=== PATIENT | female | born 1960 | race Caucasian/White ===

== ENCOUNTER 2020-01-17 02:58 | Emergency (ER) | payer OTHER ==
[~2020-01-17] VITALS: Ht 167 cm; Wt 118.0 kg
[~2020-01-17 02:58] MED LIST: ALPR1T PO; CEFU250T PO; CLIN150C17 PO; DULO60CA6 PO; FURO40TA4 PO; IBP800T PO; K CL PO; LEVO125T6 PO; LVT.15T PO; PRD10T PO
[2020-01-17 03:12] VITALS: BP 145/63
[2020-01-17] MEDS ORDERED: TETANUS,DIPTH,PERTUSS P/F (BOOSTRIX) 0.5 ML VIAL IM ONE (03:15)
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
[2020-01-17] MEDS ORDERED: SULF1TAB35 PO (03:39)
[2020-01-17] MEDS ORDERED: TRIM/SULFAMETH 160/800 (SEPTRA DS) TAB PO ONE ×2 (03:42→03:45)
--- NOTE | 2020-01-17 06:41 | Diagnostic Imaging Report ---
INDICATION: Left leg trauma COMPARISON: None FINDINGS: Two views left tibia-fibula demonstrate no fracture or dislocation. Articular surfaces are normal. No foreign body seen. IMPRESSION: Negative left tibia and fibula Dictated by: Dictated on workstation # [id number]
== END 2020-01-17 03:52 | disposition home or self-care (01) ==
LOC: EDUNIT# 02:58 → ER 02:59
DX: S81.812A Laceration without foreign body, left lower leg, initial encounter (principal); J44.9 Chronic obstructive pulmonary disease, unspecified; I10 Essential (primary) hypertension; E03.9 Hypothyroidism, unspecified; E66.01 Morbid (severe) obesity due to excess calories; F41.9 Anxiety disorder, unspecified; F32.9 Major depressive disorder, single episode, unspecified; G89.29 Other chronic pain; M54.9 Dorsalgia, unspecified; Z79.890 Hormone replacement therapy; Z68.41 Body mass index [BMI] 40.0-44.9, adult; Z79.82 Long term (current) use of aspirin; Z23 Encounter for immunization; Z79.1 Long term (current) use of non-steroidal anti-inflammatories (NSAID); Z79.52 Long term (current) use of systemic steroids; Y00.XXXA Assault by blunt object, initial encounter
CPT/HCPCS: 73590; 90715

== ENCOUNTER 2022-09-24 00:48 | Observation (INO) | payer SELFPAY ==
[2022-09-24] VITALS (18 sets, daily range): BP systolic 123–155; BP diastolic 65–101
[~2022-09-24] VITALS: Ht 165.1 cm; Wt 106.8 kg
[~2022-09-24 00:48] MED LIST changes: +ASCO-262 PO; +BUPR150T24 PO; +BUPR300T98 PO; +CITA40TA13 PO; -CLIN150C17 PO; +CLIN150C20 PO; +DOXY100T2 PO; +FISH1CAP15 PO; +LEVO175T5 PO; +LEVO75TA6 PO; +MAGN400T39 PO; +MULT-1136 PO; +OXC5T PO; +SULF1TAB38 PO; +VITA-246 PO; +ZINC50TA11 PO
[2022-09-24] MEDS ORDERED: ASPIRIN 81 MG CHEW (CHILDREN'S ASA) PO ONE (01:00)
[2022-09-24] MEDS: NITROGLYCERIN 0.4 MG SL TABS BTL 25'S SL PRN ×3 (01:04→01:17)
[2022-09-24 01:07] LABS: BASOPHILS % (AUTO) 0 % (0-10); EOSINOPHILS # (AUTO) 0.2 10^3/uL (0.0-0.3); EOSINOPHILS % (AUTO) 3 % (0-10); HEMATOCRIT 42 % (35-52); HEMOGLOBIN 13.8 g/dL (11.5-16.0); LYMPHOCYTES # (AUTO) 3.3 10^3/uL (1.0-4.0); LYMPHOCYTES % (AUTO) 41 % (12-44); MEAN CORPUSCULAR HEMOGLOBIN 30 pg (25-34); MEAN CORPUSCULAR HGB CONC 33 g/dL (32-36); MEAN CORPUSCULAR VOLUME 93 fL (80-99); MEAN PLATELET VOLUME 9.7 fL (9.0-12.2); MONOCYTES # (AUTO) 0.5 10^3/uL (0.0-1.0); MONOCYTES % (AUTO) 6 % (0-12); NEUTROPHILS # (AUTO) 4.1 10^3/uL (1.8-7.8); NEUTROPHILS % (AUTO) 50 % (42-75); PLATELET COUNT 292 10^3/uL (130-400); WHITE BLOOD COUNT 8.3 10^3/uL (4.3-11.0)
--- NOTE | 2022-09-24 01:09 | ED Chest Pain ---
General Chief Complaint: Chest Pain Stated Complaint: CP Nursing Triage Note: TO ED VIA POV AND AMBULATORY TO ROOM 7 WITH C/O LEFT SIDE CP THAT WOKE HER UP FROM SLEEP JUST POLICE CLERK APPROX 20MIN AGO. RATES PAIN 7/10. PT IS AUDIBLY WHEEZY. Source: patient Exam Limitations: no limitations History of Present Illness Date Seen by Provider: Sep 24, 2022 Time Seen by Provider: 00:54 Initial Comments Here with report of 20 minutes of left-sided chest pain that woke her up from sleep. States that it is 7 out of 10 and she is a little short of breath and does have some wheezes. Denies smoking history. Denies previous cardiac history but states that she does have thyroid problems. Denies nausea or vo miting but does have weakness. Denies sweating. Timing/Duration: 1/2 hour, constant Severity/Quality: moderate, severe, pressure, sharp Location: central Radiation: no radiation Prior CP/Workup: no prior chest pain, echocardiography Modifying Factors: improves with other (No exacerbating or relieving factors) ASA po POLICE CLERK: No NTG SL POLICE CLERK: No Associated Symptoms: No abdominal pain, No back pain, No diaphoresis, No nausea/vomiting; shortness of breath; No weakness Allergies and Home Medications Allergies Coded Allergies: NKANo Known Allergies (Verified Allergy, Unknown, 10/31/06) Patient Home Medication List Home Medication List Reviewed: Yes Ascorbate Calcium (Vitamin C) 500 Mg Tablet, 500 MG PO DAILY, (Reported) Entered as Reported by: CARRIE AQUINO on 06/26/22 1123 Last Action: Reviewed Bupropion HCl (Wellbutrin Xl) 150 Mg Tab.er.24h, 150 MG PO DAILY, (Reported) Entered as Reported by: CARRIE AQUINO on 09/24/221457 Last Action: Reviewed Bupropion HCl (Wellbutrin Xl) 300 Mg Tab.er.24h, 300 MG PO DAILY, (Reported) Entered as Reported by: CARRIE AQUINO on 09/24/221457 Last Action: Reviewed Citalopram Hydrobromide (Citalopram HBr) 40 Mg Tablet, 40 MG PO DAILY, (Reported) Entered as Reported by: CARRIE AQUINO on 09/24/221457 Last Action: Reviewed Cyanocobalamin (Vitamin B-12) (Vitamin B-12) 500 Mcg Tablet, 500 MCG PO DAILY, (Reported) Entered as Reported by: CARRIE AQUINO on 09/24/221457 Last Action: Reviewed Ibuprofen (Ibuprofen) 200 Mg Capsule, 600 MG PO Q8H PRN for PAIN-MILD (1-4), (Reported) Entered as Reported by: CARRIE AQUINO on 09/24/221457 Last Action: Reviewed Levothyroxine Sodium (Levothyroxine Sodium) 175 Mcg Tablet, 175 MCG PO DAILY, (Reported) Entered as Reported by: CARRIE AQUINO on 09/24/221457 Last Action: Reviewed [place]-3S/Dha/Epa/Fish Oil (Fish Oil 1,200 mg Softgel) 350-600 Mg Capsule, 1 EACH PO DAILY, (Reported) Entered as Reported by: CARRIE AQUINO on 09/24/221457 Last Action: Reviewed Selenomethionine (Selenium) 200 Mcg Tablet, 200 MCG PO DAILY, (Reported) Entered as Reported by: CARRIE AQUINO on 09/24/221457 Last Action: Reviewed Vitamin A (Vitamin A) 2,400 Mcg Capsule, 2,400 MCG PO DAILY, (Reported) Entered as Reported by: CARRIE AQUINO on 09/24/221457 Last Action: Reviewed Vitamin D3/Vitamin K2 (Mk4) (K2 Plus D3 Tablet) 1,000 Unit-100 Mcg Tablet, 1 EACH PO DAILY, (Reported) Entered as Reported by: CARRIE AQUINO on 09/24/22 160 Last Action: Reviewed Vitamin E Mixed (Vitamin E) 100 Unit Tablet, 100 UNIT PO DAILY, (Reported) Entered as Reported by: CARRIE AQUINO on 09/24/221457 Last Action: Reviewed Zinc Gluconate (Zinc) 50 Mg Tablet, 50 MG PO DAILY, (Reported) Entered as Reported by: CARRIE AQUINO on 06/26/22 1123 Last Action: Reviewed [[place]] , 1 EA PO DAILY, (Reported) Entered as Reported by: CARRIE AQUINO on 09/24/221457 Last Action: Reviewed Discontinued Medications Bupropion HCl (Bupropion Xl) 150 Mg Tab.er.24h, 150 MG PO DAILY Discontinued Reason: Duplicate Order Prescribed by: CHAVA CASTRO on 06/27/22 1512 Last Action: Discontinued Bupropion HCl (Bupropion Xl) 300 Mg Tab.er.24h, 300 MG PO DAILY Discontinued Reason: Duplicate Order Prescribed by: CHAVA CASTRO on 06/27/221511 Last Action: Discontinued Citalopram Hydrobromide (Citalopram HBr) 40 Mg Tablet, 40 MG PO DAILY Discontinued Reason: Duplicate Order Prescribed by: CHAVA CASTRO on 06/27/221511 Last Action: Discontinued Doxycycline Hyclate (Doxycycline Hyclate) 100 Mg Tablet, 100 MG PO BID Discontinued Reason: Duplicate Order Prescribed by: CHAVA CASTRO on 06/27/221516 Last Action: Discontinued Fish Oil/Dha/Epa (Fish Oil 1,200 mg Fish Oil) 1,200 Mg-144 Mg-216 Mg Capsule, 1 EACH PO DAILY, (Reported) Discontinued Reason: Duplicate Order Entered as Reported by: CARRIE AQUINO on 06/26/221122 Last Action: Discontinued Levothyroxine Sodium (Levothyroxine Sodium) 175 Mcg Tablet, 175 MCG PO DAILY Discontinued Reason: Duplicate Order Prescribed by: CHAVA CASTRO on 06/27/221511 Last Action: Discontinued Magnesium Oxide (Magnesium) 400 Mg Magnesium Tablet, 400 MG PO DAILY, (Reported) Discontinued Reason: Duplicate Order Entered as Reported by: CARRIE AQUINO on 06/26/221122 Last Action: Discontinued Multivitamin (Multivitamin) 1 Each Tablet, 1 EACH PO DAILY, (Reported) Discontinued Reason: Duplicate Order Entered as Reported by: CARRIE AQUINO on 06/26/221122 Last Action: Discontinued Oxycodone Hcl (Oxyir Tablet) 5 Mg Tab, 5 MG PO Q4H PRN for PAIN-SEVERE (8-10) Discontinued Reason: Duplicate Order Prescribed by: CHAVA CASTRO on 06/27/22 1649 Last Action: Discontinued Vitamin D3/Vitamin K2 (Mk4) (K2 Plus D3 Tablet) 1,000 Unit-100 Mcg Tablet, 1 EACH PO DAILY, (Reported) Discontinued Reason: Duplicate Order Entered as Reported by: CARRIE AQUINO on 06/26/221122 Last Action: Discontinued Review of Systems Review of Systems Constitutional: see HPI; No chills, No fever EENTM: No Nose Congestion, No Throat Pain Respiratory: Denies Cough; Shortness of Air Cardiovascular: Chest Pain, Edema Gastrointestinal: Denies Nausea, Denies Vomiting Genitourinary: No Symptoms Reported Musculoskeletal: no symptoms reported Skin: change in color (Lower extremities bilateral); No lesions Psychiatric/Neurological: No Symptoms Reported Past Tegodtu-Hfpixv-Ynnqsm Hx Patient Social History Tobacco Use?: No Substance use?: No Alcohol Use?: No Immunizations Up To Date Tetanus Booster (TDap): Unknown Influenza Vaccine Up-to-Date: No; Not Current Seasonal Allergies Seasonal Allergies: Yes Past Medical History Surgery/Hospitalization HX: HX-ASTHMA, HX CELLULITIS, HTN, HYPOTHYROIDISM, DEPRESSION SURGICAL HX- HYST, T AND A, Surgeries: Yes Bladder Surgery, Hysterectomy, Tonsillectomy Respiratory: Yes Asthma, COPD Cardiac: Yes Hypertension Neurological: No 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 Genitourinary: No Gastrointestinal: No Musculoskeletal: No Arthritis, Chronic Back Pain Endocrine: Yes Hypothyroidsim HEENT: No Loss of Vision: Denies Hearing Impairment: Denies Cancer: No Psychosocial: Yes Anxiety Integumentary: No Blood Disorders: No Family Medical History Reviewed Nursing Family Hx Cardiovascular disease 19 MOTHER Colon cancer 19 FATHER Diabetes mellitus 19 FATHER Heart Disease, Cancer, Diabetes Physical Exam Vital Signs Vital Signs - First Documented 09/24/22 00:53 Temp 36.0 Pulse 74 Resp 20 B/P (MAP) 182/101 (128) Pulse Ox 96 O2 Delivery Room Air Capillary Refill : Less Than 3 Seconds Height, Weight, BMI Height: 5'5" Weight: 266lbs. oz. 120.517406op; BMI Method:Stated General Appearance: WD/WN, Mild Distress HEENT: PERRL/EOMI, Pharynx Normal Neck: Non Tender, Supple Respiratory: Wheezing (Trace wheezing throughout all lung hernández) Cardiovascular: Regular Rate, Rhythm, No Murmur Gastrointestinal: Non Tender, Soft Extremity: Normal Range of Motion, Non Tender, Pedal Edema (1-2+ up to mid tibia bilateral) Neurologic/Psychiatric: Alert Skin: Warm/Dry, Other (Red/purple discoloration to the lower extremities from mid tibia down) Progress/Results/Core Measures Results/Orders Lab Results Laboratory Tests Test 09/24/22 00:55 09/24/22 02:55 Range/Units White Blood Count 8.3 4.3-11.0 10^3/uL Red Blood Count 4.57 3.80-5.11 10^6/uL Hemoglobin 13.8 11.5-16.0 g/dL Hematocrit 42 35-52 % Mean Corpuscular Volume 93 80-99 fL Mean Corpuscular Hemoglobin 30 25-34 pg Mean Corpuscular Hemoglobin Concent 33 32-36 g/dL Red Cell Distribution Width 14.6 H 10.0-14.5 % Platelet Count 292 130-400 10^3/uL Mean Platelet Volume 9.7 9.0-12.2 fL Immature Granulocyte % (Auto) 1 % Neutrophils (%) (Auto) 50 42-75 % Lymphocytes (%) (Auto) 41 12-44 % Monocytes (%) (Auto) 6 0-12 % Eosinophils (%) (Auto) 3 0-10 % Basophils (%) (Auto) 0 0-10 % Neutrophils # (Auto) 4.1 1.8-7.8 10^3/uL Lymphocytes # (Auto) 3.3 1.0-4.0 10^3/uL Monocytes # (Auto) 0.5 0.0-1.0 10^3/uL Eosinophils # (Auto) 0.2 0.0-0.3 10^3/uL Basophils # (Auto) 0.0 0.0-0.1 10^3/uL Immature Granulocyte # (Auto) 0.1 0.0-0.1 10^3/uL Prothrombin Time 12.9 12.2-14.7 SEC INR Comment 0.9 0.8-1.4 Activated Partial Thromboplast Time 37 H 24-35 SEC D-Dimer 2.72 H 0.00-0.49 UG/ML Sodium Level 137 135-145 MMOL/L Potassium Level 4.4 3.6-5.0 MMOL/L Chloride Level 100 98-107 MMOL/L Carbon Dioxide Level 26 21-32 MMOL/L Anion Gap 11 5-14 MMOL/L Blood Urea Nitrogen 22 H 7-18 MG/DL Creatinine 0.95 0.60-1.30 MG/DL Estimat Glomerular Filtration Rate 67 BUN/Creatinine Ratio 23 Glucose Level 102 70-105 MG/DL Calcium Level 9.5 8.5-10.1 MG/DL Corrected Calcium 9.5 8.5-10.1 MG/DL Magnesium Level 2.0 1.6-2.4 MG/DL Total Bilirubin 0.2 0.1-1.0 MG/DL Aspartate Amino Transf (AST/SGOT) 18 5-34 U/L Alanine Aminotransferase (ALT/SGPT) 18 0-55 U/L Alkaline Phosphatase 112 40-136 U/L Myoglobin 92.7 H 10.0-92.0 NG/ML Troponin I < 0.028 < 0.028 <0.028 NG/ML C-Reactive Protein High Sensitivity 0.69 H 0.00-0.50 MG/DL B-Type Natriuretic Peptide 87.1 <100.0 PG/ML Total Protein 8.5 H 6.4-8.2 GM/DL Albumin 4.0 3.2-4.5 GM/DL My Orders Orders - DANAY GALO MD Cbc With Automated Diff (09/24/22 00:59) Magnesium (09/24/22 00:59) Chest 1 View, Ap/Pa Only (09/24/22 00:59) Ekg Tracing (09/24/22 00:59) Comprehensive Metabolic Panel (09/24/22 00:59) Myoglobin Serum (09/24/22 00:59) Protime With Inr (09/24/22 00:59) Partial Thromboplastin Time (09/24/22 00:59) O2 (09/24/22 00:59) Monitor-Rhythm Ecg Trace Only (09/24/22 00:59) Ed Iv/Invasive Line Start (09/24/22 00:59) Nitroglycerin 0.4 Mg Btl 25's (Nitrostat (09/24/22 01:00) Aspirin Chewable Tablet (Baby Aspirin Ch (09/24/22 01:00) Fibrin Degradation Products (09/24/22 00:59) Troponin I Wendy (09/24/22 00:59) Bnp Wendy (09/24/22 01:19) Hs C Reactive Protein (09/24/22 01:19) Morphine Injection (Morphine Injection (09/24/22 01:30) Ct Angio Chest W (R/O Pe) (09/24/22 01:50) Ns Iv 1000 Ml (Sodium Chloride 0.9%) (09/24/22 01:50) Iohexol Injection (Omnipaque 350 Mg/Ml 1 (09/24/22 02:30) Received Contrast (Hold Metformin- Contr (09/24/22 02:30) Ns (Ivpb) (Sodium Chloride 0.9% Ivpb Bag (09/24/22 02:30) Troponin I Wendy (09/24/22 02:35) Medications Given in ED Vital Signs/I&O 09/24/22 00:53 Temp 36.0 Pulse 74 Resp 20 B/P (MAP) 182/101 (128) Pulse Ox 96 O2 Delivery Room Air Blood Pressure Mean: 128 Progress Progress Note : Progress Note Seen and evaluated. IV, labs including CBC, CMP, troponin, magnesium, coags and D-dimer ordered. I will add BNP as well. Chest x-ray and EKG ordered. ASA 324 mg p.o. as well as nitro sublingual 0.4 mg up to 3 doses ordered. Monitor patient. Differential diagnosis includes cardiac event, pulmonary embolism, COPD/asthma exacerbation, electrolyte abnormality, reflux. 0114: Patient has had 1 nitroglycerin with improvement of pain to 4 out of 10 now. We have given second nitroglycerin and blood pressure is currently 120 systolic down from 160 systolic. Monitor patient. 0118: Chest x-ray interpreted by me as noted below. Pain is down to a 3 out of 10 now after 2 nitro and blood pressure is 118 systolic. We will proceed with third nitroglycerin sublingual. CBC is grossly normal. Chemistries pending. Monitor patient. 0150: Pain is much improved after morphine 4 mg IV. Chemistries reviewed and grossly normal with normal serum creatinine and normal LFTs. Troponin is negative. Myoglobin is elevated slightly. BNP is negative. CRP is low at 0.69. She does have elevated D-dimer concerning for clot and possible pulmonary embolism. CT angiogram of the chest ordered. We will give 1 L of normal saline slowly after CT angio due to contrast concerns but she does have cardiomegaly noted on chest x-ray with pleural effusion and so we will be slower than full bolus and will likely run out of 500 mL an hour. 0235: I did review the CT angiogram and I do not see pulmonary embolism but she does have left pleural effusion and cardiomegaly on my interpretation pending radiology read. 0329: Patient remains comfortable with heart rate in the 50s and blood pressure in the 140s systolic. Repeat troponin is negative. CT angiogram report listed below shows no pulmonary embolism. D-dimer elevation may be from chronic stasis in the legs and not pulmonary embolism or significant clot. No signs of infection on laboratory evaluation. Patient should be admitted as she is higher risk for cardiovascular disease with hypertension and elevated cholesterol and age. She will need cardiology consult. I did discuss with the patient who agrees. I did discuss the case with Dr. Estrada, hospitalist on-call for [facility] and she accepts patient for admission, observation status. We will consult cardiology in the morning and get 2D cardiac echo in the morning with repeat troponin at 7 AM. Again all findings and concerns were discussed with patient and family who agree with admission. She is currently chest pain-free. Initial ECG Impression Date: Sep 24, 2022 Initial ECG Impression Time: 00:54 Initial ECG Rate: 69 Initial ECG Rhythm: Normal Sinus Comment Sinus rhythm with left bundle branch block and left atrial abnormality with OK interval increased to 225. No evidence of ST elevation LA. Overall similar morphology to previous of 19 May 2015. Interpreted by me. Diagnostic Imaging Diagonstic Imaging: Xray Plain Films/CT/US/NM/MRI: chest Comments Chest x-ray shows enlarged cardiac silhouette with likely left pleural effusion that is changed from previous. Interpreted by me pending radiology review. Reviewed: Reviewed by Me Diagonstic Imaging: CT Plain Films/CT/US/NM/MRI: chest Comments CT angiogram of the chest shows no pulmonary embolism. No aortic aneurysm or dissection. Left pleural effusion with associated compressive atelectasis. Minimal left basilar atelectasis. Cardiomegaly. Per stat rad report. Reviewed: Reviewed [facility] Study, Reviewed by Me Departure Communication (Admissions) Time/Spoke to Admitting Phy: 03:29 Impression Primary Impression: Chest pain Qualified Codes: R07.9 - Chest pain, unspecified Additional Impressions: Pleural effusion, left Cardiomegaly Disposition: ADMITTED INPATIENT Condition: Stable Admissions Decision to Admit Reason: Admit from ER (General) Decision to Admit/Date: Sep 24, 2022 Time/Decision to Admit Time: 03:29 Departure-Patient Inst. Referrals: [facility] (PCP/Family) Primary Care Physician DANAY GALO MD Sep 24, 2022 01:09
[2022-09-24 01:19] LABS: CHLORIDE 100 MMOL/L (98-107); POTASSIUM 4.4 MMOL/L (3.6-5.0); SODIUM 137 MMOL/L (135-145)
[2022-09-24 01:20] LABS: CALCIUM 9.5 MG/DL (8.5-10.1)
[2022-09-24 01:21] LABS: GLUCOSE 102 MG/DL (70-105); TOTAL PROTEIN 8.5 GM/DL (6.4-8.2)
[2022-09-24 01:22] LABS: CARBON DIOXIDE 26 MMOL/L (21-32); FIBRIN DEGRADATION PRODUCTS 2.72 UG/ML (0.00-0.49); INR 0.9 (0.8-1.4); PROTHROMBIN TIME PATIENT 12.9 SEC (12.2-14.7)
[2022-09-24 01:23] LABS: BILIRUBIN,TOTAL 0.2 MG/DL (0.1-1.0)
[2022-09-24 01:25] LABS: ALKALINE PHOSPHATASE 112 U/L (40-136); CREATININE SERUM 0.95 MG/DL (0.60-1.30); GFR ESTIMATED 67
[2022-09-24 01:26] LABS: BUN/CREATININE RATIO 23
[2022-09-24 01:28] LABS: ALANINE AMINOTRANSFERASE 18 U/L (0-55)
[2022-09-24] MEDS ORDERED: morphine INJ 10 MG/ML 1ML (SYR OR VIAL) IVP ONE (01:30)
[2022-09-24] MEDS ORDERED: NS IV 1000 ML 1,000 ML IV STA (01:50)
[2022-09-24] MEDS ORDERED: HOLD METFORMIN - RECEIVED CONTRAST 20 ML VIAL IV SCH (02:30)
[2022-09-24] MEDS ORDERED: NS 100 ML (IVPB) BAG IV ONE (02:30)
[2022-09-24] MEDS ORDERED: IOHEXOL 350 MG/ML 100 ML (OMNIPAQUE 350) VIAL IV ONE (02:30)
[2022-09-24] MEDS ORDERED: ONDANSETRON 4 MG/2 ML (SDV) Z0FRAN IV PRN ×2 (04:30→05:30)
[2022-09-24] MEDS ORDERED: CATHETER FLUSH 10 ML SYR IVP PRN (04:30)
[2022-09-24] MEDS ORDERED: NITROGLYCERIN 0.4 MG SL TABS BTL 25'S SL PRN ×2 (04:30→07:30)
[2022-09-24] MEDS ORDERED: morphine INJ 4 MG/ML 1 ML (VIAL/SYRINGE) IV PRN ×2 (04:30→07:30)
[2022-09-24] MEDS ORDERED: ANTACID SUSP 30 ML UDC (MYLANTA) PO PRN (05:30)
[2022-09-24] MEDS ORDERED: MELATONIN 3 MG TABLET PO PRN (05:30)
[2022-09-24] MEDS ORDERED: LACTULOSE SYRUP 10GM/15ML (ENULOSE) 30ML UDC PO PRN (05:30)
[2022-09-24] MEDS ORDERED: ONDANSETRON 4 MG (ZOFRAN) ORAL DISSOLVE TAB PO PRN (05:30)
[2022-09-24] MEDS ORDERED: MILK OF MAGNESIA 400 MG/5 ML 30 ML UDC PO PRN (05:30)
[2022-09-24] MEDS ORDERED: CALCIUM CARBONATE 500 MG (TUMS) TAB.CHEW PO PRN (05:30)
[2022-09-24] MEDS ORDERED: BISACODYL 10 MG SUPP (DULCOLAX) PR PRN (05:30)
[2022-09-24] MEDS ORDERED: diphenhydrAMINE 50 MG/ML INJ (BENADRYL) IVP PRN (05:30)
[2022-09-24] MEDS ORDERED: ACETAMINOPHEN 325 MG TABLET PO PRN (05:30)
[2022-09-24] MEDS ORDERED: diphenhydrAMINE 25 MG TAB (BENADRYL) PO PRN (05:30)
[2022-09-24] MEDS ORDERED: polyethylene glycoL POWDER 17 GM (MIRALAX) PACK PO PRN (05:30)
[2022-09-24] MEDS: CATHETER FLUSH 10 ML SYR IVP SCH ×2 (06:10→16:30)
--- NOTE | 2022-09-24 06:13 | Diagnostic Imaging Report ---
INDICATION: Chest pain Single AP view of the chest is obtained with comparison made to the study of 05/19/2015. There is opacification of left lung base which may be due to infiltrate and possible associated pleural fluid. No pneumothorax is identified. Heart size is at the upper limits of normal without significant venous congestion. IMPRESSION: Left basilar infiltrate with associated left pleural fluid and/or thickening. Follow-up PA and lateral views of the chest would be useful. Dictated by: Dictated on workstation # [id number]
[2022-09-24] MEDS ORDERED: RT-ALBUTEROL SULF 2.5 MG/3 ML PRE-MIX VIAL IH PRN (06:30)
--- NOTE | 2022-09-24 06:50 | Diagnostic Imaging Report ---
INDICATION: Chest pain and elevated D-dimer. CTA of the thorax is performed after bolus intravenous administration of iodinated contrast. 3-D reformatted images are produced. There is mild cardiomegaly. Small amount of pericardial fluid is identified. There is moderate amount of left pleural fluid with subjacent atelectasis and/or pneumonitis most pronounced in the lingula and left lower lobe. There is no evidence of filling defect within the pulmonary arteries. There is mild aortic atherosclerotic calcification. Probable granulomas calcification is also noted in the lingula. There is mosaic pattern groundglass density which could be due to edema or pneumonitis. No definite lobar consolidation is identified. IMPRESSION: Left pleural fluid with atelectasis and/or pneumonitis and mild diffuse background pulmonary edema or pneumonitis. There is also evidence of granulomatous residua however no acute pulmonary embolism is detected. Dictated by: Dictated on workstation # [id number]
[2022-09-24 06:56] LABS: BASOPHILS % (AUTO) 0 % (0-10); EOSINOPHILS # (AUTO) 0.1 10^3/uL (0.0-0.3); EOSINOPHILS % (AUTO) 1 % (0-10); HEMATOCRIT 37 % (35-52); HEMOGLOBIN 12.3 g/dL (11.5-16.0); LYMPHOCYTES # (AUTO) 1.9 10^3/uL (1.0-4.0); LYMPHOCYTES % (AUTO) 21 % (12-44); MEAN CORPUSCULAR HEMOGLOBIN 31 pg (25-34); MEAN CORPUSCULAR HGB CONC 33 g/dL (32-36); MEAN CORPUSCULAR VOLUME 93 fL (80-99); MEAN PLATELET VOLUME 9.9 fL (9.0-12.2); MONOCYTES # (AUTO) 0.5 10^3/uL (0.0-1.0); MONOCYTES % (AUTO) 6 % (0-12); NEUTROPHILS # (AUTO) 6.7 10^3/uL (1.8-7.8); NEUTROPHILS % (AUTO) 72 % (42-75); PLATELET COUNT 227 10^3/uL (130-400); WHITE BLOOD COUNT 9.2 10^3/uL (4.3-11.0)
[2022-09-24 07:12] LABS: BUN/CREATININE RATIO 25; CALCIUM 8.4 MG/DL (8.5-10.1); CARBON DIOXIDE 25 MMOL/L (21-32); CHLORIDE 102 MMOL/L (98-107); CREATININE SERUM 0.83 MG/DL (0.60-1.30); GFR ESTIMATED 79; GLUCOSE 105 MG/DL (70-105); POTASSIUM 4.9 MMOL/L (3.6-5.0); SODIUM 135 MMOL/L (135-145)
--- NOTE | 2022-09-24 08:43 | Consultation-Cardiology ---
HPI-Cardiology Cardiology Consultation Date of Consultation 09/24/22 Date of Admission Time Seen by Provider: 08:39 Indication: Chest pain HPI 62-year-old lady with no significant cardiac history, reporting history of bradycardia in the past. Woke up at night with chest pain in the retrosternal area. Mild shortness of breath. Continue to have chest pain until she arrived to the emergency room. Currently she is feeling better, no active chest pain. No shortness of breath. No palpitation. Home Medications & Allergies Allergies: Coded Allergies: NKANo Known Allergies (Verified Allergy, Unknown, 10/31/06) Home Medication List Reviewed: Yes BJW-Snhlab-Etqbrh Hx Patient Social History Marital Status: Employed/Student: employed Former smoker/When Quit: Jul 22, 1990 2nd Hand Smoke Exposure: No Recent Hopitalizations: Yes Alcohol Use?: No Immunizations Up To Date Tetanus Booster (TDap): Unknown Past Medical History Discussed below Family Medical History Significant Family History: Heart Disease, Cancer, Diabetes Family History: Cardiovascular disease 19 MOTHER Colon cancer 19 FATHER Diabetes mellitus 19 FATHER Review of Systems-General Review of Systems Constitutional: see HPI; No chills, No fever EENTM: see HPI, no symptoms reported Respiratory: no symptoms reported, see HPI Cardiovascular: see HPI, chest pain; No edema, No Hx of Intervention, No palpitations, No syncope, No vascular heart diseas, No other Gastrointestinal: no symptoms reported, see HPI Genitourinary: no symptoms reported, see HPI Musculoskeletal: no symptoms reported Skin: change in color (Lower extremities bilateral); No lesions Psychiatric/Neurological: No Symptoms Reported Reviewed Test Results Reviewed Test Results Lab Laboratory Tests Test 09/24/22 00:55 09/24/22 02:55 09/24/22 06:42 Range/Units White Blood Count 8.3 9.2 4.3-11.0 10^3/uL Red Blood Count 4.57 4.03 3.80-5.11 10^6/uL Hemoglobin 13.8 12.3 11.5-16.0 g/dL Hematocrit 42 37 35-52 % Mean Corpuscular Volume 93 93 80-99 fL Mean Corpuscular Hemoglobin 30 31 25-34 pg Mean Corpuscular Hemoglobin Concent 33 33 32-36 g/dL Red Cell Distribution Width 14.6 H 14.6 H 10.0-14.5 % Platelet Count 292 227 130-400 10^3/uL Mean Platelet Volume 9.7 9.9 9.0-12.2 fL Immature Granulocyte % (Auto) 1 0 % Neutrophils (%) (Auto) 50 72 42-75 % Lymphocytes (%) (Auto) 41 21 12-44 % Monocytes (%) (Auto) 6 6 0-12 % Eosinophils (%) (Auto) 3 1 0-10 % Basophils (%) (Auto) 0 0 0-10 % Neutrophils # (Auto) 4.1 6.7 1.8-7.8 10^3/uL Lymphocytes # (Auto) 3.3 1.9 1.0-4.0 10^3/uL Monocytes # (Auto) 0.5 0.5 0.0-1.0 10^3/uL Eosinophils # (Auto) 0.2 0.1 0.0-0.3 10^3/uL Basophils # (Auto) 0.0 0.0 0.0-0.1 10^3/uL Immature Granulocyte # (Auto) 0.1 0.0 0.0-0.1 10^3/uL Prothrombin Time 12.9 12.2-14.7 SEC INR Comment 0.9 0.8-1.4 Activated Partial Thromboplast Time 37 H 24-35 SEC D-Dimer 2.72 H 0.00-0.49 UG/ML Sodium Level 137 135 135-145 MMOL/L Potassium Level 4.4 4.9 3.6-5.0 MMOL/L Chloride Level 100 102 98-107 MMOL/L Carbon Dioxide Level 26 25 21-32 MMOL/L Anion Gap 11 8 5-14 MMOL/L Blood Urea Nitrogen 22 H 21 H 7-18 MG/DL Creatinine 0.95 0.83 0.60-1.30 MG/DL Estimat Glomerular Filtration Rate 67 79 BUN/Creatinine Ratio 23 25 Glucose Level 102 105 70-105 MG/DL Calcium Level 9.5 8.4 L 8.5-10.1 MG/DL Corrected Calcium 9.5 8.5-10.1 MG/DL Magnesium Level 2.0 1.6-2.4 MG/DL Total Bilirubin 0.2 0.1-1.0 MG/DL Aspartate Amino Transf (AST/SGOT) 18 5-34 U/L Alanine Aminotransferase (ALT/SGPT) 18 0-55 U/L Alkaline Phosphatase 112 40-136 U/L Myoglobin 92.7 H 10.0-92.0 NG/ML Troponin I < 0.028 < 0.028 < 0.028 <0.028 NG/ML C-Reactive Protein High Sensitivity 0.69 H 0.00-0.50 MG/DL B-Type Natriuretic Peptide 87.1 <100.0 PG/ML Total Protein 8.5 H 6.4-8.2 GM/DL Albumin 4.0 3.2-4.5 GM/DL Physical Exam Physical Exam Vital Signs Vital Signs - First Documented 09/24/22 09/24/22 00:53 05:53 Temp 36.0 Pulse 74 Resp 20 B/P (MAP) 182/101 (128) Pulse Ox 96 O2 Delivery Room Air FiO2 21 Capillary Refill : Less Than 3 Seconds Height, Weight, BMI Height: 5'5" Weight: 266lbs. oz. 120.783110qt; 39.18 BMI Method:Stated General Appearance: WD/WN, Mild Distress Eyes: Bilateral Eye Normal Inspection, Bilateral Eye PERRL, Bilateral Eye EOMI HEENT: PERRL/EOMI, Pharynx Normal Neck: Non Tender, Supple Respiratory: Wheezing (Trace wheezing throughout all lung hernández) Cardiovascular: Regular Rate, Rhythm, No Murmur Gastrointestinal: Non Tender, Soft Back: Normal Inspection, No CVA Tenderness, No Vertebral Tenderness Extremity: Normal Range of Motion, Non Tender, Pedal Edema (1-2+ up to mid tibia bilateral) Neurologic/Psychiatric: Alert Skin: Warm/Dry, Other (Red/purple discoloration to the lower extremities from mid tibia down) Lymphatic: No Adenopathy A/P-Cardiology Admission Diagnosis Chest pain Left bundle branch block Obesity Family history of atherosclerosis Assessment/Plan Chest pain nonspecific etiology, atypical in presentation Baseline EKG with left bundle branch block Cardiac enzymes were negative Planning to evaluate Lexiscan stress test Mildly elevated D-dimer, CT scan did not show any pulmonary infiltrate Left lower lobe infiltrate and pleural effusion noted on x-ray and CT Mild dyspnea with chest pain, feeling better Obesity, BMI 39 Strong family history of heart disease Clinical Quality Measures AMI/AHF: ASA po Prior to arrival: FENG Tirado MD Sep 24, 2022 08:43
[2022-09-24] MEDS ORDERED: RT-ALBUTEROL HFA 8.5 GM INHALER IH PRN (08:45)
[2022-09-24] MEDS ORDERED: REGADENOSON 0.4 MG/5 ML SYR (LEXISCAN) IV ONE ×2 (08:45→09:40)
[2022-09-24] MEDS ORDERED: SENNOSIDES 8.6 MG (SENOKOT) TAB PO SCH (09:00)
[2022-09-24] MEDS ORDERED: ASPIRIN E.C. 81 MG (ECOTRIN) TAB PO SCH ×2 (09:00)
[2022-09-24] MEDS ORDERED: ENOXAPARIN 120 MG/0.8 ML (LOVENOX) SQ SCH (09:00)
[2022-09-24] MEDS ORDERED: DOCUSATE SODIUM 100 MG (COLACE) CAP PO SCH (09:00)
[2022-09-24] MEDS ORDERED: RT-ALBUTEROL SULF 2.5 MG/3 ML PRE-MIX VIAL IH SCH (09:00)
[2022-09-24] MEDS: RT-ALBUTEROL HFA 8.5 GM INHALER IH SCH ×3 (10:45→19:17)
--- NOTE | 2022-09-24 11:32 | Cardiology Stress Test Report ---
Stress Test Report Date of Procedure/Referring: Date of Procedure: Sep 24, 2022 [facility] Admitting Physician Admitting Physician: Meera Estrada DO Attending Physician: Meera Estrada DO Indications: CP Baseline Heart Rate: 63 Baseline Blood Pressure: Blood Pressure Systolic: 136 Blood Pressure Diastolic: 78 Baseline Vitals Vital Signs Date Time Temp Pulse Resp B/P (MAP) Pulse Ox O2 Delivery O2 Flow Rate FiO2 09/24/22 00:53 36.0 74 20 182/101 (128) 96 Room Air 09/24/22 05:53 21 Baseline EKG: Baseline EKG: LBBB Summary After explaining the procedure to the patient, she signed a consent and then brought to the stress nuclear laboratory. Patient received 0.4 mg Lexiscan for stress test, ECG, heart rate and blood pressure were monitored continuously. Resting and stress dose of radio tracer were injected, imaging was acquired and reviewed in short axis, horizontal long axis and vertical long axis views. TID: 0.96 SSS: 8 SDS: 6 EF: 42 Patient tolerated Lexiscan well Baseline left bundle branch block persisted during test Reversible ischemia involving the inferior wall Prominent left ventricle with diffuse left ventricular hypokinesia ejection fraction 42% Copy Copies To 1: [facility]/ FENG ARROYO MD Sep 24, 2022 11:32
--- NOTE | 2022-09-24 11:44 | Diagnostic Imaging Report ---
Patient History: Followup pleural effusion.. Technique: Single decubitus view of the chest was obtained. Comparison: CT chest performed the same date. FINDINGS: Small layering left-sided pleural effusion is seen. Patchy opacities are seen in the left lung base. IMPRESSION: 1. Small layering left-sided pleural effusion. Dictated by: Dictated on workstation # [id number]
--- NOTE | 2022-09-24 12:03 | Diagnostic Imaging Report ---
PROCEDURE: US left lower extremity venous. TECHNIQUE: Multiple real-time grayscale images were obtained over the left lower extremity in various projections. Additional duplex Doppler and color Doppler images were also obtained. INDICATION: Left lower extremity edema. COMPARISON: Non available. FINDINGS: The left common femoral, femoral and popliteal veins are patent by color doppler imaging and without DVT. Visualized proximal aspects of the greater saphenous, deep femoral, posterior tibial and peroneal veins are also patent. All of the evaluated deep venous structures demonstrate normal compressibility and waveform augmentation where applicable. IMPRESSION: No left lower extremity deep venous thrombosis (DVT). Dictated by: Dictated on workstation # [id number]
--- NOTE | 2022-09-24 12:03 | History & Physical-Hospitalist ---
ANETA WHITFIELD 09/24/22 1203: History of Present Illness HPI/Chief Complaint This is a 62 y/o female who presented to the ED early this AM for chest pain. She reports that she went to bed and had vague pain under her left armpit and left lateral side of her chest. She tried taking advil which did not help. She ended up going to bed hoping it would pass but woke up around midnight with more severe pain in the center of her chest accompanied by shortness of breath. She said at that time it was a 7/10 and it felt constant and somewhat crampy. She said it worsened when she sat upright and when she took a breath. It decreased in intensity when she let her breath out. She proceeded to the ED and was worked up for ACS and PE which were found to be negative. She was given three doses of nitroglycerin in the ED which she says helped the pain. Her EKGs were found to have significant LBBB but this was unchanged from previous EKGs. ED nursing reports she had audible wheezing when she presented to the ED and ER physician reported she had trace wheezing throughout all lung hernández. This morning on exam she reports no pain or SOB when she woke up around 8 am in the ICU. Her history is significant for COPD/asthma treated with PRN albuterol which she says she only uses in the summer and a remote smoking history of 1ppd, quit in 1991. She was told she has COPD by her clinic doctors but is unsure of what kind. She denies being told she has ever had asthma but has significant allergies. She currently has drainage but denies cough, dyspnea, production of mucous, fevers, chills, N/VD. She was recently hospitalized for a LLE wound/cellulitis. This wound is healed but still somewhat visible today. She says in the previous 1-2 days she noted that her left leg was "twice as large" as her right with swelling and some discomfort though today this is not present except for warmth to touch in her lower left leg. Source: patient, RN/MD, RN notes reviewed Exam Limitations: no limitations Date Seen 09/24/22 Time Seen by a Provider: 10:45 Attending Physician [place] PCP Admitting Physician: Meera Faustin DO Attending Physician: Meera Faustin DO Referring Physician Date of Admission Sep 24, 2022 at 03:36 Home Medications & Allergies Home Medications Reviewed patient Home Medication Reconciliation performed by pharmacy medication reconciliations turfgrass technician and/or nursing. Patients Allergies have been reviewed. Allergies Allergies Coded Allergies NKANo Known Allergies (Verified Allergy, Unknown, 10/31/06) Past Rqkvhqk-Nxhocu-Boyozf Hx Patient Social History Marrital Status: Employed/Student: employed Tobacco Use?: No Smoking Status: Former Smoker Smokeless Tobacco Frequency: Former User (1 ppd, stopped in 1991.) Substance use?: No Alcohol Use?: No Pt feels they are or have been: No Immunizations Up To Date Tetanus Booster (TDap): Unknown Seasonal Allergies Seasonal Allergies: Yes Current Status Communicates: Verbally Primary Language: Italian Preferred Spoken Language: Italian Is interpretation needed?: No Past Medical History Surgeries: Bladder Surgery, Hysterectomy, Tonsillectomy Asthma, COPD Currently Using CPAP: No Currently Using BIPAP: No 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: Menopausal Arthritis, Chronic Back Pain Hypothyroidsim Loss of Vision: Denies Hearing Impairment: Denies Anxiety Blood Disorders: No PMHx: Depression Anxiety Hypothyroidism SurgHx: Tonsillectomy x 1 Hysterectomy for menorrhagia Hemorrhoidectomy with colonoscopy Family Medical History Reviewed Nursing Family Hx Cardiovascular disease 19 MOTHER Colon cancer 19 FATHER Diabetes mellitus 19 FATHER Heart Disease, Cancer, Diabetes Review of Systems Constitutional: see HPI; No chills, No diaphoresis, No dizziness, No fever, No malaise EENTM: nose congestion Respiratory: see HPI; No hemoptysis, No phlegm; short of breath, wheezing Cardiovascular: see HPI Gastrointestinal: no symptoms reported; No abdominal pain, No constipation, No diarrhea, No nausea, No vomiting Genitourinary: no symptoms reported : No Musculoskeletal: no symptoms reported Skin: see HPI, other (Left leg swelling/redness.) Psychiatric/Neurological: No Symptoms Reported Physical Exam Physical Exam Vital Signs Vital Signs - First Documented 09/24/22 09/24/22 00:53 05:53 Temp 36.0 Pulse 74 Resp 20 B/P (MAP) 182/101 (128) Pulse Ox 96 O2 Delivery Room Air FiO2 21 Capillary Refill : Less Than 3 Seconds Height, Weight, BMI Height: 5'5" Weight: 266lbs. oz. 120.705527nm; 39.18 BMI Method:Stated General Appearance: No Apparent Distress, Obese HEENT: PERRL/EOMI, Moist Mucous Membranes Neck: Full Range of Motion, Non Tender, Supple Respiratory: Lungs Clear, Normal Breath Sounds, Decreased Breath Sounds (Decrea sed in the left lower lobe.) Cardiovascular: Regular Rate, Rhythm, No Murmur Gastrointestinal: Non Tender, Soft Back: Normal Inspection Extremity: Pedal Edema (Trace), Other (LLE midshin to foot is erythematous, warm to touch. Extremities at this time are equal in size. ) Neurologic/Psychiatric: Alert, Oriented x3, Normal Mood/Affect Skin: Normal Color, Warm/Dry Results Results/Procedures Labs Laboratory Tests 09/24/22 00:55 09/24/22 06:42 Patient resulted labs reviewed. Imaging: Reviewed Imaging Films Imaging NAME: [facility] REC#: [id number] PT STATUS: ADM Collin : 1960 PHYSICIAN: MEERA FAUSTIN DO ADMIT DATE: 09/24/22/ICU Signed Date of Exam:09/24/22 CHEST, DECUBITUS 1 VIEW Patient History: Followup pleural effusion.. Technique: Single decubitus view of the chest was obtained. Comparison: CT chest performed the same date. FINDINGS: Small layering left-sided pleural effusion is seen. Patchy opacities are seen in the left lung base. IMPRESSION: 1. Small layering left-sided pleural effusion. Dictated by: Dictated on workstation # [id number] Dict: 09/24/22 1137 Trans: 09/24/22 1145 CVB [id number] Interpreted by: ZARI HAMMER DO Electronically signed by: ZARI HAMMER DO 09/24/22 1145 NAME: [facility] REC#: [id number] PT STATUS: ADM Collin : 1960 PHYSICIAN: DANAY GALO MD ADMIT DATE: 09/24/22/ICU Signed Date of Exam:09/24/22 CT ANGIO CHEST W (R/O PE) INDICATION: Chest pain and elevated D-dimer. CTA of the thorax is performed after bolus intravenous administration of iodinated contrast. 3-D reformatted images are produced. There is mild cardiomegaly. Small amount of pericardial fluid is identified. There is moderate amount of left pleural fluid with subjacent atelectasis and/or pneumonitis most pronounced in the lingula and left lower lobe. There is no evidence of filling defect within the pulmonary arteries. There is mild aortic atherosclerotic calcification. Probable granulomas calcification is also noted in the lingula. There is mosaic pattern groundglass density which could be due to edema or pneumonitis. No definite lobar consolidation is identified. IMPRESSION: Left pleural fluid with atelectasis and/or pneumonitis and mild diffuse background pulmonary edema or pneumonitis. There is also evidence of granulomatous residua however no acute pulmonary embolism is detected. Dictated by: Dictated on workstation # [id number] Dict: 09/24/2233 Trans: 09/24/2244 CVB [id number] Interpreted by: QAMAR BAY MD Electronically signed by: QAMAR BAY MD 09/24/2244 Assessment/Plan Assessment and Plan Assessment: This is a 62 y/o female who presented with atypical chest pain and SOB on HD#0. Chest Pain Pleural Effusion LBBB Lung consolidation COPD/Asthma LLE Edema/Erythema Chest Pain LBBB Stable vs unstable angina vs pleural effusion/consolidation vs carditis vs COPD exacerbation vs pleurisy -Troponins x3 negative -BNP WNL -Elevated D-dimer, CTA negative for PE or aneurysm -Echo EF 40-45%, Pulm a pressure high at 55-60mmHg. -CRP mildly elevated -Pain more characteristic of pleurisy based on patient's report -Cardiac chemical stress test shows persistent LBBB for baseline with inducible ischemia of inferior wall -PRN NTG ordered currently -ASA 81mg PO daily ordered -Cardiology following; appreciate recs Left pleural effusion Left lower lobe consolidation PNA vs pulmonary edema 2/2 CHF (though no right side effusion) vs uncertain etiology -Currently asymptomatic; -Consolidation and effusion confirmed with most recent left lateral decubitus XR. -CT unclear if consolidation vs pneumonitis vs atelectasis vs edema -No URI symptoms, no fevers, chills. CRP mildly elevated, absence of leukocytosis -Consult general surgery for possible tap for pleural fluid analysis to better determine etiology -No antibiotics at this time -PRN pain control with oxycodone COPD/Asthma -No history of exacerbation -Mild wheezing on presentation though not on repeat exam in ICU -PRN and scheduled albuterol LLE Edema/Erythema -Doppler U/S negative for DVT -Minimal edema on exam in either extremity -Monitor FEN/GI -No fluids at this time -Replace electrolytes PRN -Currently NPO -Bowel regimen and PPI prophylaxis DVT prophylaxis: Lovenox SQ Clinical Quality Measures AMI/AHF: ASA po Prior to arrival: Bijal MEERA FAUSTIN DO 09/25/22 0446: Past Benjrdx-Hsaeje-Dtyais Hx Patient Social History Marrital Status: single Smoking Status: Former Smoker Family Medical History Cardiovascular disease 19 MOTHER Colon cancer 19 FATHER Diabetes mellitus 19 FATHER Review of Systems Constitutional: see HPI Assessment/Plan Admission Diagnosis Chest pain Smoker COPD Admission Status: Observation Diagnosis/Problems Diagnosis/Problems (1) Chest pain Status: Acute Qualifiers: Chest pain type: unspecified Qualified Codes: R07.9 - Chest pain, unspecified (2) Pleural effusion, left Status: Acute (3) Cardiomegaly Status: Acute Supervisory-Addendum Brief Verification & Attestation Participated in pt care: history, MDM, physical Personally performed: exam, history, MDM, supervision of care Care discussed with: Medical Student Procedures: n/a Results interpretation: Verified all documentation Verification and Attestation of Medical Student E/M Service A medical student performed and documented this service in my presence. I reviewed and verified all information documented by the medical student and made modifications to such information, when appropriate. I personally performed the physical exam and medical decision making. Meera Faustin, Sep 25, 2022,04:46 ANETA WHITFIELD Sep 24, 2022 12:03 MEERA FAUSTIN DO Sep 25, 2022 04:46
[2022-09-24] MEDS ORDERED: HEParin (CATH LAB) 2,000 ML IV ONE (12:40)
[2022-09-24] MEDS ORDERED: LIDOCAINE 1% INJ 20 ML VIAL ONE (12:40)
--- NOTE | 2022-09-24 12:43 | Consultation - Surgery ---
YUSUF LONGORIA 09/24/22 1243: History of Present Illness History of Present Illness Patient Consulted On(bree/time) 09/24/22 12:37 Date Seen by Provider: Sep 24, 2022 Time Seen by Provider: 12:37 Reason for Visit: Chest pain History of Present Illness 62 F presented to ED early this morning with the complaint of left sided chest pain. Pt states the pain started over the left chest/ arm pit prior to going to bed. Pt took an advil w/o any relief and was woken up to a sharp stabbing pain localized over the left chest rated 7/10 with associated SOB and audible wheezing in ED. Pt was worked up for ACS and PE and found to be negative. EKG shows a LBBB that was unchanged from previous EKG. CXR shows lt pleural effusion with atelectasis. Pt rates her current pain as a 4/10 and localized to the left chest. Reports improvement in her breathing since admission. Stress test was tolerated well. Pt last ate dinner last evening around 1800 and had a glass of water early this morning, currently NPO. She has a pmh of HTN, hypothyroidism, Asthma, COPD, arthritis, and depression. Pt denies any fever, chills, n/v, urinary or bowel complaints. Pt states she takes a blood pressure medication but does not know the name and states she is non-compliant with that medication. D enies any family hx of clotting disorders, but states her mother at 63 from an [place]. Allergies and Home Medications Allergies Coded Allergies: NKANo Known Allergies (Verified Allergy, Unknown, 10/31/06) Patient Home Medication List Ascorbate Calcium (Vitamin C) 500 Mg Tablet, 500 MG PO DAILY, (Reported) Entered as Reported by: CARRIE AQUINO on 06/26/22 1123 Last Action: Reviewed Bupropion HCl (Wellbutrin Xl) 150 Mg Tab.er.24h, 150 MG PO DAILY, (Reported) Entered as Reported by: CARRIE AQUINO on 09/24/22 3590 Last Action: Reviewed Bupropion HCl (Wellbutrin Xl) 300 Mg Tab.er.24h, 300 MG PO DAILY, (Reported) Entered as Reported by: CARRIE AQUINO on 09/24/22 6064 Last Action: Reviewed Citalopram Hydrobromide (Citalopram HBr) 40 Mg Tablet, 40 MG PO DAILY, (Reported) Entered as Reported by: CARRIE AQUINO on 09/24/221457 Last Action: Reviewed Cyanocobalamin (Vitamin B-12) (Vitamin B-12) 500 Mcg Tablet, 500 MCG PO DAILY, (Reported) Entered as Reported by: CARRIE AQUINO on 09/24/221457 Last Action: Reviewed Ibuprofen (Ibuprofen) 200 Mg Capsule, 600 MG PO Q8H PRN for PAIN-MILD (1-4), (Reported) Entered as Reported by: CARRIE AQUINO on 09/24/221457 Last Action: Reviewed Levothyroxine Sodium (Levothyroxine Sodium) 175 Mcg Tablet, 175 MCG PO DAILY, (Reported) Entered as Reported by: CARRIE AQUINO on 09/24/221457 Last Action: Reviewed Crary-3S/Dha/Epa/Fish Oil (Fish Oil 1,200 mg Softgel) 350-600 Mg Capsule, 1 EACH PO DAILY, (Reported) Entered as Reported by: CARRIE AQUINO on 09/24/221457 Last Action: Reviewed Selenomethionine (Selenium) 200 Mcg Tablet, 200 MCG PO DAILY, (Reported) Entered as Reported by: CARRIE AQUINO on 09/24/221457 Last Action: Reviewed Vitamin A (Vitamin A) 2,400 Mcg Capsule, 2,400 MCG PO DAILY, (Reported) Entered as Reported by: CARRIE AQUINO on 09/24/221457 Last Action: Reviewed Vitamin E Mixed (Vitamin E) 100 Unit Tablet, 100 UNIT PO DAILY, (Reported) Entered as Reported by: CARRIE AQUINO on 09/24/221457 Last Action: Reviewed Zinc Gluconate (Zinc) 50 Mg Tablet, 50 MG PO DAILY, (Reported) Entered as Reported by: CARRIE AQUINO on 06/26/22 112 Last Action: Reviewed [[place]] , 1 EA PO DAILY, (Reported) Entered as Reported by: CARRIE AQUINO on 09/24/221457 Last Action: Reviewed Discontinued Medications Bupropion HCl (Bupropion Xl) 150 Mg Tab.er.24h, 150 MG PO DAILY Discontinued Reason: Duplicate Order Prescribed by: CHAVA CASTRO on 06/27/22 1512 Last Action: Discontinued Bupropion HCl (Bupropion Xl) 300 Mg Tab.er.24h, 300 MG PO DAILY Discontinued Reason: Duplicate Order Prescribed by: CHAVA CASTRO on 06/27/221511 Last Action: Discontinued Citalopram Hydrobromide (Citalopram HBr) 40 Mg Tablet, 40 MG PO DAILY Discontinued Reason: Duplicate Order Prescribed by: CHAVA CASTRO on 06/27/221511 Last Action: Discontinued Doxycycline Hyclate (Doxycycline Hyclate) 100 Mg Tablet, 100 MG PO BID Discontinued Reason: Duplicate Order Prescribed by: CHAVA CASTRO on 06/27/221516 Last Action: Discontinued Fish Oil/Dha/Epa (Fish Oil 1,200 mg Fish Oil) 1,200 Mg-144 Mg-216 Mg Capsule, 1 EACH PO DAILY, (Reported) Discontinued Reason: Duplicate Order Entered as Reported by: CARRIE AQUINO on 06/26/221122 Last Action: Discontinued Levothyroxine Sodium (Levothyroxine Sodium) 175 Mcg Tablet, 175 MCG PO DAILY Discontinued Reason: Duplicate Order Prescribed by: CHAVA CASTRO on 06/27/221511 Last Action: Discontinued Magnesium Oxide (Magnesium) 400 Mg Magnesium Tablet, 400 MG PO DAILY, (Reported) Discontinued Reason: Duplicate Order Entered as Reported by: CARRIE AQUINO on 06/26/221122 Last Action: Discontinued Multivitamin (Multivitamin) 1 Each Tablet, 1 EACH PO DAILY, (Reported) Discontinued Reason: Duplicate Order Entered as Reported by: CARRIE AQUINO on 06/26/221122 Last Action: Discontinued Oxycodone Hcl (Oxyir Tablet) 5 Mg Tab, 5 MG PO Q4H PRN for PAIN-SEVERE (8-10) Discontinued Reason: Duplicate Order Prescribed by: CHAVA CASTRO on 06/27/22 1649 Last Action: Discontinued Vitamin D3/Vitamin K2 (Mk4) (K2 Plus D3 Tablet) 1,000 Unit-100 Mcg Tablet, 1 EACH PO DAILY, (Reported) Discontinued Reason: Duplicate Order Entered as Reported by: CARRIE AQUINO on 06/26/221122 Last Action: Discontinued Past Tzygfzi-Samdcw-Fuzaqf Hx Patient Social History 2nd Hand Smoke Exposure: No Recent Hopitalizations: Yes Alcohol Use?: No Immunizations Up To Date Tetanus Booster (TDap): Unknown Seasonal Allergies Seasonal Allergies: Yes Surgeries History of Surgeries: Yes Surgeries: Bladder Surgery (at 42 yrs old), Hysterectomy (at 40), Tonsillectomy (at 14 years old ) Respiratory History of Respiratory Disorde: Yes Respiratory Disorders: Asthma, COPD Cardiovascular History of Cardiac Disorders: Yes Cardiac Disorders: Hypertension Neurological History of Neurological Disord: No Reproductive System Hx Reproductive Disorders: No INVENTORY AUDITOR History: Menopausal Genitourinary History of Genitourinary Disor: No Gastrointestinal History of Gastrointestinal Di: No Musculoskeletal History of Musculoskeletal Dis: No Musculoskeletal Disorders: Arthritis, Chronic Back Pain Endocrine History of Endocrine Disorders: Yes Endocrine Disorders: Hypothyroidsim HEENT History of HEENT Disorders: No Loss of Vision: Denies Hearing Impairment: Denies Cancer History of Cancer: No Psychosocial History of Psychiatric Problem: Yes Behavioral Health Disorders: Anxiety Integumentary History of Skin or Integumenta: No Blood Transfusions History of Blood Disorders: No Family Medical History Significant Family History: Heart Disease (Mother), Cancer (Father passed to colon cancer at age 52), Diabetes (Brother/sister/father) Family Medial History: Cardiovascular disease 19 MOTHER Colon cancer 19 FATHER Diabetes mellitus 19 FATHER Review of Systems-General Constitutional: No chills, No diaphoresis EENTM: No double vision, No nose congestion Respiratory: No cough; short of breath (mild at rest ); No wheezing Cardiovascular: chest pain (Anterior left chest ), edema (2+ LE edema to mid t ibia ) Gastrointestinal: No abdominal pain, No constipation, No diarrhea, No dysphagia, No nausea, No vomiting Genitourinary: No dysuria, No frequency Musculoskeletal: No back pain, No joint pain Skin: No lesions, No lumps; other (signs of chronic venous stasis in BL LE) Psychiatric/Neurological: Denies Headache, Denies Numbness Physical Exam-General Problems Physical Exam Vital Signs Vital Signs - First Documented 09/24/22 09/24/22 00:53 05:53 Temp 36.0 Pulse 74 Resp 20 B/P (MAP) 182/101 (128) Pulse Ox 96 O2 Delivery Room Air FiO2 21 Capillary Refill : Less Than 3 Seconds General Appearance: WD/WN, no apparent distress Eyes: Bilateral Eye Normal Inspection, Bilateral Eye PERRL, Bilateral Eye EOMI HEENT: PERRL/EOMI, other (moist mucus membranes ) Neck: non-tender, normal inspection Respiratory: chest non-tender (to palpation ), no respiratory distress, no accessory muscle use, decreased breath sounds (over the lower left lung hernández ); No wheezing Cardiovascular: regular rate, rhythm, no murmur Peripheral Pulses: 3+ Dorsalis Pedis (R), 3+ Left Dors-Pedis (L), 3+ Radial Pulses (R), 3+ Radial Pulses (L) Gastrointestinal: normal bowel sounds, non tender, soft, no organomegaly, no pulsatile mass Back: no CVA tenderness, no vertebral tenderness Extremities: non-tender, normal inspection, no calf tenderness, pedal edema (2+ BL ) Neurologic/Psychiatric: alert, normal mood/affect, oriented x 3 Skin: normal color, warm/dry Lymphatic: no adenopathy Data Review Labs Laboratory Tests 09/24/22 00:55: White Blood Count 8.3, Red Blood Count 4.57, Hemoglobin 13.8, Hematocrit 42, Mean Corpuscular Volume 93, Mean Corpuscular Hemoglobin 30, Mean Corpuscular Hemoglobin Concent 33, Red Cell Distribution Width 14.6H, Platelet Count 292, Mean Platelet Volume 9.7, Immature Granulocyte % (Auto) 1, Neutrophils (%) (Auto) 50, Lymphocytes (%) (Auto) 41, Monocytes (%) (Auto) 6, Eosinophils (%) (Auto) 3, Basophils (%) (Auto) 0, Neutrophils # (Auto) 4.1, Lymphocytes # (Auto) 3.3, Monocytes # (Auto) 0.5, Eosinophils # (Auto) 0.2, Basophils # (Auto) 0.0, Immature Granulocyte # (Auto) 0.1, Prothrombin Time 12.9, INR Comment 0.9, Activated Partial Thromboplast Time 37H, D-Dimer 2.72H, Sodium Level 137, Pota ssium Level 4.4, Chloride Level 100, Carbon Dioxide Level 26, Anion Gap 11, Blood Urea Nitrogen 22H, Creatinine 0.95, Estimat Glomerular Filtration Rate 67, BUN/Creatinine Ratio 23, Glucose Level 102, Calcium Level 9.5, Corrected Calci um 9.5, Magnesium Level 2.0, Total Bilirubin 0.2, Aspartate Amino Transf (AST/SGOT) 18, Alanine Aminotransferase (ALT/SGPT) 18, Alkaline Phosphatase 112, Myoglobin 92.7H, Troponin I < 0.028, C-Reactive Protein High Sensitivity 0.69H, B-Type Natriuretic Peptide 87.1, Total Protein 8.5H, Albumin 4.0 09/24/22 02:55: Troponin I < 0.028 09/24/22 06:42: White Blood Count 9.2, Red Blood Count 4.03, Hemoglobin 12.3, Hematocrit 37, Mean Corpuscular Volume 93, Mean Corpuscular Hemoglobin 31, Mean Corpuscular Hemoglobin Concent 33, Red Cell Distribution Width 14.6H, Platelet Count 227, Mean Platelet Volume 9.9, Immature Granulocyte % (Auto) 0, Neutrophils (%) (Auto) 72, Lymphocytes (%) (Auto) 21, Monocytes (%) (Auto) 6, Eosinophils (%) (Auto) 1, Basophils (%) (Auto) 0, Neutrophils # (Auto) 6.7, Lymphocytes # (Auto) 1.9, Monocytes # (Auto) 0.5, Eosinophils # (Auto) 0.1, Basophils # (Auto) 0.0, Immature Granulocyte # (Auto) 0.0, Sodium Level 135, Potassium Level 4.9, Chloride Level 102, Carbon Dioxide Level 25, Anion Gap 8, Blood Urea Nitrogen 21H, Creatinine 0.83, Estimat Glomerular Filtration Rate 79, BUN/Creatinine Ratio 25, Glucose Level 105, Calcium Level 8.4L, Troponin I < 0.028 Assessment/Plan Assessment/Plan Assessment/Plan chest pain Left sided pleural effusion w/ atelectasis Left bundle branch block COPD hypothyroidism NPO CXR tomorrow to access for changes pleural effusion Continue pain control start ICS and compression stockings continue anti-coag therapy continue zofran restart home blood pressure and thyroid medications F/u with medicine or cardiology tomorrow on possible lasix therapy post cardiac cath Clinical Quality Measures AMI/AHF: ASA po Prior to arrival: ERIBERTO Philip DO 09/24/22 1512: History of Present Illness History of Present Illness Time Seen by Provider: 14:47 History of Present Illness Surgery asked to consult regarding Left sided Pleural effusion. HPI per ED: Here with report of 20 minutes of left-sided chest pain that woke her up from sleep. States that it is 7 out of 10 and she is a little short of breath and does have some wheezes. Denies smoking history. Denies previous cardiac history but states that she does have thyroid problems. Denies nausea or vomiting but does have weakness. Denies sweating. When I spoke to pt she was laying in her bed in the ICU; appeared very comforta ble. She is scheduled for cardiac cath at around 4pm today. She denies CP and SOB, thinks her breathing is much better than before. Allergies and Home Medications Allergies Coded Allergies: Mikki Known Allergies (Verified Allergy, Unknown, 10/31/06) Patient Home Medication List Home Medication List Reviewed: Yes Ascorbate Calcium (Vitamin C) 500 Mg Tablet, 500 MG PO DAILY, (Reported) Entered as Reported by: CARRIE AQUINO on 06/26/22 112 Last Action: Reviewed Bupropion HCl (Wellbutrin Xl) 150 Mg Tab.er.24h, 150 MG PO DAILY, (Reported) Entered as Reported by: CARRIE AQUINO on 09/24/221457 Last Action: Reviewed Bupropion HCl (Wellbutrin Xl) 300 Mg Tab.er.24h, 300 MG PO DAILY, (Reported) Entered as Reported by: CARRIE AQUINO on 09/24/221457 Last Action: Reviewed Citalopram Hydrobromide (Citalopram HBr) 40 Mg Tablet, 40 MG PO DAILY, (Reported) Entered as Reported by: CARRIE AQUINO on 09/24/221457 Last Action: Reviewed Cyanocobalamin (Vitamin B-12) (Vitamin B-12) 500 Mcg Tablet, 500 MCG PO DAILY, (Reported) Entered as Reported by: CARRIE AQUINO on 09/24/221457 Last Action: Reviewed Ibuprofen (Ibuprofen) 200 Mg Capsule, 600 MG PO Q8H PRN for PAIN-MILD (1-4), (Reported) Entered as Reported by: CARRIE AQUINO on 09/24/221457 Last Action: Reviewed Levothyroxine Sodium (Levothyroxine Sodium) 175 Mcg Tablet, 175 MCG PO DAILY, (Reported) Entered as Reported by: CARRIE AQUINO on 09/24/221457 Last Action: Reviewed Crary-3S/Dha/Epa/Fish Oil (Fish Oil 1,200 mg Softgel) 350-600 Mg Capsule, 1 EACH PO DAILY, (Reported) Entered as Reported by: CARRIE AQUINO on 09/24/221457 Last Action: Reviewed Selenomethionine (Selenium) 200 Mcg Tablet, 200 MCG PO DAILY, (Reported) Entered as Reported by: CARRIE AQUINO on 09/24/221457 Last Action: Reviewed Vitamin A (Vitamin A) 2,400 Mcg Capsule, 2,400 MCG PO DAILY, (Reported) Entered as Reported by: CARRIE AQUINO on 09/24/221457 Last Action: Reviewed Vitamin E Mixed (Vitamin E) 100 Unit Tablet, 100 UNIT PO DAILY, (Reported) Entered as Reported by: CARRIE AQUINO on 09/24/221457 Last Action: Reviewed Zinc Gluconate (Zinc) 50 Mg Tablet, 50 MG PO DAILY, (Reported) Entered as Reported by: CARRIE AQUINO on 06/26/221122 Last Action: Reviewed [[place]] , 1 EA PO DAILY, (Reported) Entered as Reported by: CARRIE AQUINO on 09/24/221457 Last Action: Reviewed Discontinued Medications Bupropion HCl (Bupropion Xl) 150 Mg Tab.er.24h, 150 MG PO DAILY Discontinued Reason: Duplicate Order Prescribed by: CHAVA CASTRO on 06/27/221511 Last Action: Discontinued Bupropion HCl (Bupropion Xl) 300 Mg Tab.er.24h, 300 MG PO DAILY Discontinued Reason: Duplicate Order Prescribed by: CHAVA CASTRO on 06/27/221511 Last Action: Discontinued Citalopram Hydrobromide (Citalopram HBr) 40 Mg Tablet, 40 MG PO DAILY Discontinued Reason: Duplicate Order Prescribed by: CHAVA CASTRO on 06/27/221511 Last Action: Discontinued Doxycycline Hyclate (Doxycycline Hyclate) 100 Mg Tablet, 100 MG PO BID Discontinued Reason: Duplicate Order Prescribed by: CHAVA CASTRO on 06/27/221516 Last Action: Discontinued Fish Oil/Dha/Epa (Fish Oil 1,200 mg Fish Oil) 1,200 Mg-144 Mg-216 Mg Capsule, 1 EACH PO DAILY, (Reported) Discontinued Reason: Duplicate Order Entered as Reported by: CARRIE AQUINO on 06/26/221122 Last Action: Discontinued Levothyroxine Sodium (Levothyroxine Sodium) 175 Mcg Tablet, 175 MCG PO DAILY Discontinued Reason: Duplicate Order Prescribed by: CHAVA CASTRO on 06/27/221511 Last Action: Discontinued Magnesium Oxide (Magnesium) 400 Mg Magnesium Tablet, 400 MG PO DAILY, (Reported) Discontinued Reason: Duplicate Order Entered as Reported by: CARRIE AQUINO on 06/26/221122 Last Action: Discontinued Multivitamin (Multivitamin) 1 Each Tablet, 1 EACH PO DAILY, (Reported) Discontinued Reason: Duplicate Order Entered as Reported by: CARRIE AQUINO on 06/26/221122 Last Action: Discontinued Oxycodone Hcl (Oxyir Tablet) 5 Mg Tab, 5 MG PO Q4H PRN for PAIN-SEVERE (8-10) Discontinued Reason: Duplicate Order Prescribed by: CHAVA CASTRO on 06/27/22 1649 Last Action: Discontinued Vitamin D3/Vitamin K2 (Mk4) (K2 Plus D3 Tablet) 1,000 Unit-100 Mcg Tablet, 1 EACH PO DAILY, (Reported) Discontinued Reason: Duplicate Order Entered as Reported by: CARRIE AQUINO on 06/26/221122 Last Action: Discontinued Past Iejylus-Tomzbk-Uarjnp Hx Patient Social History Smoking Status: Former Smoker (Quit in 1991, smoked off and on since she was 12) Alcohol Use?: No Seasonal Allergies Seasonal Allergies: Yes Surgeries History of Surgeries: Yes Surgeries: Bladder Surgery (at 42 yrs old), Hysterectomy (at 40), Tonsillectomy (at 14 years old ) Respiratory History of Respiratory Disorde: Yes Respiratory Disorders: Asthma, COPD Cardiovascular History of Cardiac Disorders: Yes Cardiac Disorders: Hypertension Neurological History of Neurological Disord: No Reproductive System : No Genitourinary History of Genitourinary Disor: No Gastrointestinal History of Gastrointestinal Di: No Musculoskeletal History of Musculoskeletal Dis: Yes Musculoskeletal Disorders: Arthritis, Chronic Back Pain Endocrine History of Endocrine Disorders: Yes Endocrine Disorders: Hypothyroidsim HEENT History of HEENT Disorders: No Loss of Vision: Denies Hearing Impairment: Denies Cancer Cancer: Breast Psychosocial History of Psychiatric Problem: Yes Behavioral Health Disorders: Anxiety Integumentary History of Skin or Integumenta: No Family Medical History Significant Family History: Heart Disease (Mother), Cancer (Father passed to colon cancer at age 52), Diabetes (Brother/sister/father) Family Medial History: Cardiovascular disease 19 MOTHER Colon cancer 19 FATHER Diabetes mellitus 19 FATHER Review of Systems-General Constitutional: No chills, No diaphoresis EENTM: No double vision, No nose congestion Respiratory: No cough; short of breath (mild at rest ), wheezing (in ER, but stopped) Cardiovascular: chest pain (Anterior left chest ), edema (2+ LE edema to mid tibia ) Gastrointestinal: No abdominal pain, No constipation, No diarrhea, No dysphagia, No nausea, No vomiting Genitourinary: No dysuria, No frequency Musculoskeletal: back pain, joint pain, joint swelling, muscle stiffness Skin: No lesions, No lumps; other (signs of chronic venous stasis in BL LE) Psychiatric/Neurological: Anxiety; Denies Headache, Denies Numbness Physical Exam-General Problems Physical Exam General Appearance: no apparent distress, obese Eyes: Bilateral Eye PERRL, Bilateral Eye EOMI HEENT: pharynx normal; No scleral icterus (R), No scleral icterus (L); other (moist mucus membranes ) Neck: non-tender, supple Respiratory: chest non-tender (to palpation ), no respiratory distress, no accessory muscle use, decreased breath sounds (over the lower left lung hernández ); No wheezing; other (dullness to percussion left lower lobe) Cardiovascular: regular rate, rhythm, no murmur Peripheral Pulses: 2+ Dorsalis Pedis (R), 2+ Left Dors-Pedis (L), 2+ Radial Pulses (R), 2+ Radial Pulses (L) Gastrointestinal: normal bowel sounds, non tender, soft, no organomegaly, no pulsatile mass Rectal: deferred Back: no CVA tenderness, no vertebral tenderness Extremities: non-tender, no calf tenderness, pedal edema (2+ BL ) 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 CTA of the thorax is performed after bolus intravenous administration of iodinated contrast. 3-D reformatted images are produced. There is mild cardiomegaly. Small amount of pericardial fluid is identified. There is moderate amount of left pleural fluid with subjacent atelectasis and/or pneumonitis most pronounced in the lingula and left lower lobe. There is no evidence of filling defect within the pulmonary arteries. There is mild aortic atherosclerotic calcification. Probable granulomas calcification is also noted in the lingula. There is mosaic pattern groundglass density which could be due to edema or pneumonitis. No definite lobar consolidation is identified. IMPRESSION: Left pleural fluid with atelectasis and/or pneumonitis and mild diffuse background pulmonary edema or pneumonitis. There is also evidence of granulomatous residua however no acute pulmonary embolism is detected. Dictated by: Dictated on workstation # [id number] Dict: 09/24/2233 Trans: 09/24/2244 CVB [id number] Interpreted by: QAMAR BAY MD Electronically signed by: QAMAR BAY MD 09/24/2244 Assessment/Plan Assessment/Plan Assessment/Plan Left sided pleural effusion w/ atelectasis Chest pain- resolved Left bundle branch block COPD hypothyroidism NPO for cardiac cath, CXR in am to assess for changes of the pleural effusion Continue pain control, encourage IS, ambulation and use of compression st ockings continue anti-coag therapy, continue anti-emetics as needed restart home blood pressure and thyroid medications Would consider possible lasix therapy for edema and pleural effusion, but will wait to discuss with IM and Sales Development Director after cardiac cath Pt is basically asymptomatic from the pleural effusion; does not need supplementary O2 and is not having trouble breathing. Will hold off on Thoracentesis until pt starts having symptoms. Supervisory-Addendum Brief Verification & Attestation Participated in pt care: history, MDM, physical Personally performed: exam, history, MDM, supervision of care Care discussed with: Medical Student Procedures: n/a Verification and Attestation of Medical Student E/M Service A medical student performed and documented this service. I then reviewed and verified all information documented by the medical student and made modifications to such information, when appropriate. I personally performed a physical exam, medical decision making and then discussed any differences between the notes and made revisions as necessary to create one note. Eriberto Diaz , 09/24/22 , 15:21 YUSUF LARKIN Sep 24, 2022 12:43 ERIBERTO DIAZ DO Sep 24, 2022 15:12
[2022-09-24] MEDS ORDERED: NS IV 1000 ML 1,000 ML IV SCH ×2 (13:00→16:30)
[2022-09-24] MEDS ORDERED: LEVO175T5 PO (14:58)
[2022-09-24] MEDS ORDERED: VITA100T8 PO (14:58)
[2022-09-24] MEDS ORDERED: IBUP-2185 PO (14:58)
[2022-09-24] MEDS ORDERED: BUPR-42 PO (14:58)
[2022-09-24] MEDS ORDERED: OMEG-213 PO (14:58)
[2022-09-24] MEDS ORDERED: SELE200T11 PO (14:58)
[2022-09-24] MEDS ORDERED: CITA40TA13 PO (14:58)
[2022-09-24] MEDS ORDERED: VITA80009 PO (14:58)
[2022-09-24] MEDS ORDERED: CYAN500T8 PO (14:58)
[2022-09-24] MEDS ORDERED: [UNRECOGNIZED DRUG - OTHER] PO (14:58)
[2022-09-24] MEDS ORDERED: BUPR300T43 PO (14:58)
[2022-09-24] MEDS ORDERED: fentaNYL INJ 100 MCG/2 ML AMP ONE (15:42)
[2022-09-24] MEDS ORDERED: MIDAZOLAM 5 MG/5 ML (VERSED) VIAL ONE (15:42)
[2022-09-24] MEDS ORDERED: NS IV 1000 ML 1,000 ML ONE (15:42)
[2022-09-24] MEDS ORDERED: VITA-246 PO (16:05)
[2022-09-24] MEDS ORDERED: PATIENT MAY USE OWN MEDS, ALL PO SCH (16:30)
--- NOTE | 2022-09-24 16:31 | Cardiac Cath Report ---
Cardiac Cath Report Physician (s)/Medical Collections Representative (s) Physician FENG ARROYO MD Pre-Procedure Diagnosis Pre-Procedure Diagnosis: Coronary artery disease Post-Procedure Note Procedure Start Date: Sep 24, 2022 Name of Procedure: Left heart catheterization Findings/Procedure Note PROCEDURE NOTE: 62-year-old lady, admitted with chest pain, had an abnormal stress test, scheduled for cardiac catheterization possible PTCA. After explaining the procedure to the patient, all pros and cons were explained, all questions were answered. The patient signed the consent and then she was placed in the cardiac catheterization laboratory. Groin was prepped in SL fashion local anesthesia was used. Sheath placed in the right femoral artery. Airam' right and left catheter were used to access the coronary system. Airam right was prolapsed to the left ventricular cavity, pressure was measured, pullback LV to aorta was done At the end of the procedure the sheath was removed. Closure device was deployed FINDINGS: Hemodynamics LV 116/14, end-diastolic pressure 14 Aorta 130/87 mean of 82 ANATOMY: Left Main is free of obstructive disease Left Anterior Descending is free of obstructive disease Left Circumflex is large dominant artery with mild disease less than 20% steno sis nonobstructive disease Right Coronary Artery is small nondominant artery LV Gram was not done, pressure was measured CONCLUSION: Large dominant circumflex artery with mild disease nonobstructive disease otherwise no significant obstructive disease Normal left ventricular end-diastolic pressure DISCUSSION AND RECOMMENDATION: Abnormal stress test is probably due to left bundle branch block and extracardiac attenuation Anesthesia Type: Conscious Sedation Estimated blood loss (mL): 15 ml Contrast Amount: 42 ml Total Radiation Dose: 382 mGy Post-Procedure Diagnosis Post-operative diagnosis: Chest pain Coronary artery disease Hypertension Hyperlipidemia FENG ARROYO MD Sep 24, 2022 16:31
--- NOTE | 2022-09-24 16:33 | Discharge Inst-Post CATH ---
Discharge Inst-CATH/EP Problems Reviewed?: Yes Post Cardiac Cath/EP D/C Inst Follow Up/Plan Appointment with Dr. Boateng's office in 2 to 4 weeks <b>CARDIAC CATH/EP PROCEDURE DISCHARGE INSTRUCTIONS</b> ACTIVITY * Go Home directly and rest. * Limit activity of the leg (or wrist if it was used) for 7 days including aer obics, swimming, jogging, bicycling, etc. * Restrict stair-climbing for 7 days if possible, if not, climb up with your non-cath leg, then bring together on the same step. * Avoid lifting, pushing, pulling or excessive movement of the affected extremi ty for 7 days. * Customary sexual activity may be resumed after 2 days-use caution not to use a position that strains or causes pain to the affected extremity. * No driving for 24 hours. * NO SMOKING. * Avoid straining for bowel movements for 7 days. * Gentle walking on level ground is allowed. * Returning to work will depend on the type of procedure and the results. Your doctor will discuss this with you. CALL YOUR DOCTOR FOR ANY OF THE FOLLOWING: *If bleeding from the puncture site occurs- Apply gentle pressure to site with clean cloth and call your doctor or EMS. * If a knot or lump forms under the skin, increases in size, or causes pain. * If bruising appears to be worsening or moving further down your leg instead of disappearing. * Temperature above 101 F. CARE OF YOUR GROIN INCISION; * Bruising or purple discoloration of the skin near the puncture site is common. * You may shower only, no bathtub bathing for 5 days. Be careful to avoid slipping as your leg may feel stiff. * If a closure device was used on your femoral artery, please see the attached guide regarding care of the device and your leg. * Leave dressing on FOR 24 hours. CARE OF YOUR WRIST INCISION; * Bruising or purple discoloration of the skin near the puncture site is common. * You may shower. * DO NOT submerge wrist. * Leave dressing on FOR 24 hours. FENG BOATENG MD Sep 24, 2022 16:33
--- NOTE | 2022-09-24 16:52 | Diagnostic Imaging Report ---
INDICATION: Pleural effusion. PA and lateral chest obtained at 11:09 a.m. and compared to 09/24/2022 at 1:18 a.m. FINDINGS: Cardiomegaly is again noted. Moderate-sized left pleural effusion is unchanged. There is some left basilar infiltrate versus atelectasis with minimal right basilar infiltrate. There is no pneumothorax. IMPRESSION: Cardiomegaly with mild bibasilar infiltrate versus atelectasis and moderate-sized left pleural effusion. Dictated by: Dictated on workstation # [id number]
--- NOTE | 2022-09-24 18:00 | Discharge Summary ---
Discharge Summary Hospital Course Was the Problem List Reviewed?: Yes Problems/Dx: (1) Chest pain Status: Acute Qualifiers: Qualified Codes: R07.9 - Chest pain, unspecified (2) Pleural effusion, left Status: Acute Hospital Course Date of Admission: Sep 24, 2022 at 03:36 Admission Diagnosis : Family Physician/Provider: [place] Date of Discharge: 09/24/22 Discharge Diagnosis: [ ] Hospital Course: Brief course after admitted for chest pain and dyspnea. EST performed revealing no evidence of ACS. USG legs revealed no DVT. CXR revealed effusion but no need for removal per Dr Fuller. Patient was DC. Labs and Pending Lab Test: Laboratory Tests 09/24/22 00:55: White Blood Count 8.3, Red Blood Count 4.57, Hemoglobin 13.8, Hematocrit 42, Mean Corpuscular Volume 93, Mean Corpuscular Hemoglobin 30, Mean Corpuscular Hemoglobin Concent 33, Red Cell Distribution Width 14.6H, Platelet Count 292, Mean Platelet Volume 9.7, Immature Granulocyte % (Auto) 1, Neutrophils (%) (Auto) 50, Lymphocytes (%) (Auto) 41, Monocytes (%) (Auto) 6, Eosinophils (%) (Auto) 3, Basophils (%) (Auto) 0, Neutrophils # (Auto) 4.1, Lymphocytes # (Auto) 3.3, Monocytes # (Auto) 0.5, Eosinophils # (Auto) 0.2, Basophils # (Auto) 0.0, Immature Granulocyte # (Auto) 0.1, Prothrombin Time 12.9, INR Comment 0.9, Activated Partial Thromboplast Time 37H, D-Dimer 2.72H, Sodium Level 137, Potassium Level 4.4, Chloride Level 100, Carbon Dioxide Level 26, Anion Gap 11, Blood Urea Nitrogen 22H, Creatinine 0.95, Estimat Glomerular Filtration Rate 67, BUN/Creatinine Ratio 23, Glucose Level 102, Calcium Level 9.5, Corrected Calcium 9.5, Magnesium Level 2.0, Total Bilirubin 0.2, Aspartate Amino Transf (AST/SGOT) 18, Alanine Aminotransferase (ALT/SGPT) 18, Alkaline Phosphatase 112, Myoglobin 92.7H, Troponin I < 0.028, C-Reactive Protein High Sensitivity 0.69H, B-Type Natriuretic Peptide 87.1, Total Protein 8.5H, Albumin 4.0 09/24/22 02:55: Troponin I < 0.028 09/24/22 06:42: White Blood Count 9.2, Red Blood Count 4.03, Hemoglobin 12.3, Hematocrit 37, Mean Corpuscular Volume 93, Mean Corpuscular Hemoglobin 31, Mean Corpuscular Hemoglobin Concent 33, Red Cell Distribution Width 14.6H, Platelet Count 227, Mean Platelet Volume 9.9, Immature Granulocyte % (Auto) 0, Neutrophils (%) (Auto) 72, Lymphocytes (%) (Auto) 21, Monocytes (%) (Auto) 6, Eosinophils (%) (Auto) 1, Basophils (%) (Auto) 0, Neutrophils # (Auto) 6.7, Lymphocytes # (Auto) 1.9, Monocytes # (Auto) 0.5, Eosinophils # (Auto) 0.1, Basophils # (Auto) 0.0, Immature Granulocyte # (Auto) 0.0, Sodium Level 135, Potassium Level 4.9, Chl oride Level 102, Carbon Dioxide Level 25, Anion Gap 8, Blood Urea Nitrogen 21H, Creatinine 0.83, Estimat Glomerular Filtration Rate 79, BUN/Creatinine Ratio 25, Glucose Level 105, Calcium Level 8.4L, Troponin I < 0.028 Home Meds Active Reported K2 Plus D3 Tablet (Vitamin D3/Vitamin K2 (Mk4)) 1,000 Unit-100 Mcg Tablet 1 Each PO DAILY Ibuprofen 200 Mg Capsule 600 Mg PO Q8H PRN [[place]] 1 Ea PO DAILY Selenium (Selenomethionine) 200 Mcg Tablet 200 Mcg PO DAILY Fish Oil 1,200 mg Softgel ([place]-3S/Dha/Epa/Fish Oil) 350-600 Mg Capsule 1 Each PO DAILY Vitamin B-12 (Cyanocobalamin (Vitamin B-12)) 500 Mcg Tablet 500 Mcg PO DAILY Vitamin A 2,400 Mcg Capsule 2,400 Mcg PO DAILY Vitamin E (Vitamin E Mixed) 100 Unit Tablet 100 Unit PO DAILY Citalopram HBr (Citalopram Hydrobromide) 40 Mg Tablet 40 Mg PO DAILY LAST FILLED 06-27-2022 #30/30 DAY SUPPLY Levothyroxine Sodium 175 Mcg Tablet 175 Mcg PO DAILY LAST FILLED 06-27-2022 #30/30 DAY SUPPLY Wellbutrin Xl (Bupropion HCl) 300 Mg Tab.er.24h 300 Mg PO DAILY LAST FILLED 06-27-2022 # DAY SUPPLY Wellbutrin Xl (Bupropion HCl) 150 Mg Tab.er.24h 150 Mg PO DAILY LAST FILLED 06-27-2022 # DAY SUPPLY Zinc (Zinc Gluconate) 50 Mg Tablet 50 Mg PO DAILY Vitamin C (Ascorbate Calcium) 500 Mg Tablet 500 Mg PO DAILY Assessment/Pt Instructions pcp 1 week Discharge Planning: <30 minutes discharge planning Discharge Instructions Discharge Diet: No Restrictions Discharge Physical Examination Vital Signs Vital Signs Date Time Temp Pulse Resp B/P (MAP) Pulse Ox O2 Delivery O2 Flow Rate FiO2 09/24/22 17:15 69 25 125/66 (85) 93 Room Air 09/24/22 05:53 36.0 21 General Appearance: No Apparent Distress, WD/WN, Chronically ill Allergies: Coded Allergies: NKANo Known Allergies (Verified Allergy, Unknown, 10/31/06) Discharge Summary Date of Admission Sep 24, 2022 at 03:36 Date of Discharge Discharge Date: Sep 24, 2022 Discharge Time: 2100 Clinical Quality Measures AMI/AHF: ASA po Prior to arrival: DARREN Peterson DO Sep 24, 2022 18:00
== END 2022-09-24 21:40 | disposition home or self-care (01) ==
LOC: EDUNIT# 00:48 → ER 00:50 → ICU 03:36
PROVIDERS: ADMIT Internal Medicine; ATTEND Internal Medicine
DX: R07.9 Chest pain, unspecified (principal); I25.10 Atherosclerotic heart disease of native coronary artery without angina pectoris; I10 Essential (primary) hypertension; E78.5 Hyperlipidemia, unspecified; J90 Pleural effusion, not elsewhere classified; J44.9 Chronic obstructive pulmonary disease, unspecified; E03.9 Hypothyroidism, unspecified; I44.7 Left bundle-branch block, unspecified; Z79.899 Other long term (current) drug therapy; R60.0 Localized edema; J18.1 Lobar pneumonia, unspecified organism; I42.9 Cardiomyopathy, unspecified; E66.9 Obesity, unspecified; R79.1 Abnormal coagulation profile; Z28.310 Unvaccinated for COVID-19; Z68.39 Body mass index [BMI] 39.0-39.9, adult
CPT/HCPCS: 71045; 71046 ×2; 71275; 78452; 80048; 80053; 83735; 83874; 83880; 84484; 85025; 85379; 85610; 85730; 86141; 93005; 93017; 93041; 93458; 93971; 94640 ×2; 94664; 99284; A9502; C1760; C1894; C8929; 36415; 93306; 96372